=== PATIENT | male | born 1985 | race Caucasian/White ===

== ENCOUNTER 2022-04-10 12:10 | Observation (INO) ==
[2022-04-10] MEDS ORDERED: Lactated Ringers 1000 ml BAG 1,000 ML IV ONE (13:09)
[2022-04-10] MEDS ORDERED: LORazepam 2 mg VIAL 1 ml IV PUSH ONE (13:10)
[2022-04-10] MEDS ORDERED: Lorazepam PYXIS KEY PRN (13:10)
[2022-04-10 13:34] LABS: ABS Eosinophils 0.1 10^3/ul (0-0.6); ABS Lymphocytes 2.6 10^3/ul (1.0-4.8); ABS Monocytes 0.6 10^3/ul (0-0.8); ABS Neutrophils 5.4 10^3/ul (1.5-7.7); Eosinophil % 1.5 %; Hematocrit 43 % (42-52); Hemoglobin 14.9 g/dL (14.0-18.0); Mean Corpuscular HGB Conc 34 g/dL (31-36); Mean Corpuscular Hemoglobin 34 pg (27-31); Mean Corpuscular Volume 98 fL (80-94); Mean Platelet Volume 7.9 fL (7.4-10.4); Platelet Count 158 10^3/uL (150-450); Red Blood Count 4.44 10^6 /uL (4.18-5.48); Red Cell Distribution Width 14 % (10-15); White Blood Count 8.8 10^3/uL (3.5-10.8)
[2022-04-10 13:41] LABS: Urine Appearance Clear; Urine Bilirubin Negative (Negative); Urine Blood Negative (Negative); Urine Color Straw; Urine Glucose Negative (Negative); Urine Ketones Negative (Negative); Urine Nitrite Negative (Negative); Urine Protein Negative (Negative); Urine Specific Gravity 1.003 (1.002-1.030); Urine Urobilinogen Negative (Negative)
[2022-04-10 13:55] LABS: Urine Benzodiazepine Screen None Detected (None Detect); Urine Cannabinoids Screen None Detected (None Detect); Urine Opiates Screen None Detected (None Detect)
[2022-04-10 14:25] LABS: ALT 35 U/L (7-52); AST 32 U/L (13-39); Acetaminophen < 15 mcg/mL; Albumin 4.4 g/dL (3.2-5.2); Albumin/Globulin Ratio 1.7 (1-3); Alcohol, S 360 mg/dL (<13); Alkaline Phosphatase 66 U/L (35-149); Anion Gap 12 mmol/L (2-11); Blood Urea Nitrogen 5 mg/dL (6-24); CO2 Carbon Dioxide 25 mmol/L (22-32); Calcium 8.7 mg/dL (8.6-10.3); Chloride 105 mmol/L (101-111); Globulin 2.6 g/dL (2-4); Glucose 78 mg/dL (70-100); Salicylate < 2.50 mg/dL (<30); Sodium 142 mmol/L (135-145); eGFR CKD-EPI 128.6 (>60)
[2022-04-10 14:39] LABS: TSH Ultra Thyroid Stim Horm 0.09 mcIU/mL (0.34-5.60)
[2022-04-10] MEDS: Nicotine GUM 4MG FRUIT FLAVOR PO PRN ×3 (14:50→21:26)
[2022-04-10] MEDS ORDERED: Lactated Ringers 1000 ml BAG 1,000 ML IV SCH (15:00)
[2022-04-10 19:01] LABS: Free T4 0.84 ng/dL (0.61-1.12)
[2022-04-11] MEDS ORDERED: Thiamine 100 MG/ML 2 ml VIAL (200 mg) IM ONE (03:01)
[2022-04-11] MEDS ORDERED: Albuterol HFA INHALER 8 gm MDI INH PRN (03:04)
[2022-04-11] MEDS ORDERED: SPIRIVA Respimat (tiotropium) 2.5 mcg/inh Inhaler INH PRN (03:04)
[2022-04-11] MEDS ORDERED: LORazepam 2 mg VIAL 1 ml IV PUSH SCH (04:00)
[2022-04-11] MEDS: Multivitamins/Minerals TAB PO SCH (04:37)
[2022-04-11 04:46] LABS: ABS Eosinophils 0.2 10^3/ul (0-0.6); ABS Lymphocytes 2.1 10^3/ul (1.0-4.8); ABS Monocytes 0.6 10^3/ul (0-0.8); Eosinophil % 2.6 %; Hematocrit 38 % (42-52); Hemoglobin 12.6 g/dL (14.0-18.0); Lymphocyte % 35.2 %; Mean Corpuscular HGB Conc 33 g/dL (31-36); Mean Corpuscular Hemoglobin 33 pg (27-31); Mean Corpuscular Volume 99 fL (80-94); Nucleated Red Blood Cells % 0.1; Platelet Count 119 10^3/uL (150-450); Red Blood Count 3.83 10^6 /uL (4.18-5.48); Red Cell Distribution Width 14 % (10-15); White Blood Count 5.9 10^3/uL (3.5-10.8)
[2022-04-11 05:12] LABS: Albumin 3.3 g/dL (3.2-5.2); Calcium 7.7 mg/dL (8.6-10.3); Magnesium 1.6 mg/dL (1.9-2.7); Potassium 3.8 mmol/L (3.5-5.0); Total Bilirubin 0.4 mg/dL (0.2-1.0)
[2022-04-11 05:18] LABS: Albumin/Globulin Ratio 1.7 (1-3); Globulin 1.9 g/dL (2-4); Total Protein 5.2 g/dL (6.4-8.9); eGFR CKD-EPI 129.9 (>60)
[2022-04-11] MEDS ORDERED: Magnesium Sulfate IV 3 GM in NS 0.9% 100 ml BAG 100 ML IVPB ONE (06:46)
[2022-04-11] MEDS ORDERED: Potassium Chlor 20 meq TAB.ER PO ONE (06:46)
[2022-04-11] MEDS: LORazepam PO (enter doses in WAM protocol) PO SCH ×2 (16:40→20:20)
[2022-04-11 19:29] LABS: Calcium 9.5 mg/dL (8.6-10.3); Potassium 4.1 mmol/L (3.5-5.0)
[2022-04-11 19:35] LABS: eGFR CKD-EPI 124.5 (>60)
[2022-04-11] MEDS: Nicotine GUM 4MG FRUIT FLAVOR PO PRN ×2 (20:22→22:25)
[2022-04-12 06:31] LABS: Hematocrit 41 % (42-52); Hemoglobin 13.7 g/dL (14.0-18.0); Mean Corpuscular HGB Conc 34 g/dL (31-36); Mean Corpuscular Hemoglobin 34 pg (27-31); Mean Corpuscular Volume 100 fL (80-94); Platelet Count 123 10^3/uL (150-450); Red Blood Count 4.09 10^6 /uL (4.18-5.48); Red Cell Distribution Width 14 % (10-15); White Blood Count 4.1 10^3/uL (3.5-10.8)
[2022-04-12 06:55] LABS: Magnesium 2.1 mg/dL (1.9-2.7)
[2022-04-12 07:00] LABS: Phosphorus 4.7 mg/dL (2.5-5.0)
[2022-04-12 08:33] LABS: Calcium 9.5 mg/dL (8.6-10.3)
[2022-04-12 08:38] LABS: eGFR CKD-EPI 124.5 (>60)
[2022-04-12] MEDS ORDERED: Nicotine PATCH 21 MG/24 HR PATCH TRANSDERM SCH (09:00)
[2022-04-12] MEDS: Multivitamins/Minerals TAB PO SCH (09:42)
[2022-04-12 13:54] VITALS: BP 150/119
== END 2022-04-12 15:10 | disposition home or self-care (01) ==
LOC: ED 12:10 → EDHOLD 12:10 → SUATTDRO 04-11 02:58 → EDHOLD 04-11 15:07 → MED 04-11 17:14
PROVIDERS: ADMIT Internal Medicine; ATTEND Internal Medicine

== ENCOUNTER 2023-12-21 09:25 | Inpatient (IN) ==
[2023-12-21 16:11] LABS: ABS Basophils 0.1 10^3/uL (0.0-0.1); ABS Eosinophils 0.1 10^3/uL (0.0-0.5); ABS Lymphocytes 1.9 10^3/uL (1.0-4.8); ABS Monocytes 1.4 10^3/uL (0.0-1.1); ABS Neutrophils 11.4 10^3/uL (1.5-7.6); Eosinophil % 0.8 %; Hematocrit 42.8 % (38-53); Hemoglobin 14.8 g/dL (13.2-16.3); Lymphocyte % 12.8 %; Mean Corpuscular Hemoglobin 33.4 pg (27-33); Mean Corpuscular Hgb Conc 34.7 g/dL (31-36); Mean Corpuscular Volume 96.3 fL (80-97); Mean Platelet Volume 8.3 fL (7.5-11.2); Platelet Count 235 10^3/uL (150-450); Red Blood Count 4.44 10^6/uL (4.06-5.63); Red Cell Distribution Width 13.3 % (12-17); White Blood Count 14.9 10^3/uL (3.6-10.2)
[2023-12-21] MEDS: Morphine 4 MG/ML VIAL (1 ml) IV ONE (16:50)
[2023-12-21] MEDS: cefTRIAXone 1 gm/50 mL D5W 1 GM/50 ML BAG IV ONE (16:50)
[2023-12-21 16:53] LABS: Urine Appearance Clear; Urine Bilirubin Negative (Negative); Urine Blood Negative (Negative); Urine Color Yellow; Urine Glucose 2+ (>=150 mg/dL) (Negative); Urine Ketones Trace (Negative); Urine Nitrite Negative (Negative); Urine Protein Trace (Negative); Urine Specific Gravity 1.023 (1.002-1.030); Urine Urobilinogen Negative (Negative)
[2023-12-21 17:04] LABS: Albumin 4.6 g/dL (3.2-5.2); Albumin/Globulin Ratio 1.6 (1-3); C Reactive Protein 46.82 mg/L (<8.01); Calcium 9.6 mg/dL (8.6-10.3); Creatinine, Serum 0.73 mg/dL (0.67-1.17); Globulin 2.8 g/dL (2-4); Potassium 3.6 mmol/L (3.5-5.0); Total Bilirubin 0.6 mg/dL (0.2-1.0); Total Protein 7.4 g/dL (6.4-8.9); eGFR CKD-EPI 120.9 (>60)
[2023-12-21] MEDS: Iohexol 300 (CONTRAST) 10 ML SDV IV ONE (17:28)
[2023-12-21] MEDS: Vancomycin 1,250 MG in NS 0.9% 250 ml 250 ML IVPB ONE (17:39)
[2023-12-21] MEDS ORDERED: Vancomycin per Pharmacy 1 EA NOTE FOLLOW UP PRN (21:19)
[2023-12-21] MEDS: Lactated Ringers 1000 ml BAG 1,000 ML IV SCH (22:43)
[2023-12-22] MEDS: Vancomycin 1,250 MG in NS 0.9% 250 ml 250 ML IVPB SCH (00:18)
[2023-12-22] MEDS: Morphine 2 MG/ML SYRINGE IV PRN (02:11)
[2023-12-22 06:22] LABS: Calcium 8.7 mg/dL (8.6-10.3); Creatinine, Serum 0.72 mg/dL (0.67-1.17); eGFR CKD-EPI 121.4 (>60)
[2023-12-22 06:31] LABS: ABS Basophils 0.1 10^3/uL (0.0-0.1); ABS Eosinophils 0.3 10^3/uL (0.0-0.5); ABS Lymphocytes 1.9 10^3/uL (1.0-4.8); ABS Monocytes 1.3 10^3/uL (0.0-1.1); ABS Neutrophils 9.2 10^3/uL (1.5-7.6); Eosinophil % 2.3 %; Hematocrit 38.3 % (38-53); Hemoglobin 13.4 g/dL (13.2-16.3); Lymphocyte % 14.5 %; Mean Corpuscular Hemoglobin 33.5 pg (27-33); Mean Corpuscular Hgb Conc 34.9 g/dL (31-36); Mean Corpuscular Volume 95.8 fL (80-97); Mean Platelet Volume 8.1 fL (7.5-11.2); Platelet Count 212 10^3/uL (150-450); Red Blood Count 3.99 10^6/uL (4.06-5.63); Red Cell Distribution Width 13.1 % (12-17); White Blood Count 12.7 10^3/uL (3.6-10.2)
[2023-12-22] MEDS: HYDROmorphone 1 MG/1 ML SYRINGE IV SLOW PU PRN (06:44)
[2023-12-22] MEDS ORDERED: Midazolam 5 mg/5 ml VIAL 1 mg/ml 5 ml VIAL (5 mg) ONE (08:03)
[2023-12-22] MEDS ORDERED: fentaNYL 100 mcg/2 ml 50 MCG/ML VIAL ONE (08:03)
[2023-12-22] MEDS ORDERED: Propofol 10 MG/ML 20 ML BTL ONE ×2 (08:04→09:25)
[2023-12-22] MEDS ORDERED: Lidocaine 2% PF 5 ML VIAL ONE (08:06)
[2023-12-22] MEDS ORDERED: Ondansetron 4 mg VIAL 2 MG/ML 2 ml VIAL IV PRN (08:14)
[2023-12-22] MEDS ORDERED: Naloxone 0.4 mg VIAL 0.4 mg/ml 1 ml VIAL IV PRN (08:14)
[2023-12-22] MEDS ORDERED: fentaNYL 100 mcg/2 ml 50 MCG/ML VIAL IV PRN (08:14)
[2023-12-22] MEDS ORDERED: Lidocaine 1% VIAL 10 MG/ML 30 ML VIAL ONE (08:29)
[2023-12-22] MEDS ORDERED: Bacitracin OINTMENT TUBE ONE (08:29)
[2023-12-22] MEDS ORDERED: Vancomycin 1,500 MG in NS 0.9% 250 ml 250 ML IVPB SCH (09:00)
[2023-12-22] MEDS: cefTRIAXone 1 gm/50 mL D5W 1 GM/50 ML BAG IV SCH (15:24)
[2023-12-22] MEDS: Nicotine GUM 2MG FRUIT FLAVOR PO PRN (17:10)
[2023-12-23] MEDS: HYDROmorphone 1 MG/1 ML SYRINGE IV SLOW PU PRN (01:44)
[2023-12-23 07:50] LABS: ABS Eosinophils 0.4 10^3/uL (0.0-0.5); ABS Lymphocytes 1.6 10^3/uL (1.0-4.8); ABS Monocytes 0.9 10^3/uL (0.0-1.1); ABS Neutrophils 5.6 10^3/uL (1.5-7.6); ABS Nucleated RBC 0.01 10^3/ul; Hematocrit 37.2 % (38-53); Hemoglobin 12.8 g/dL (13.2-16.3); Lymphocyte % 18.7 %; Mean Corpuscular Hgb Conc 34.3 g/dL (31-36); Mean Corpuscular Volume 96.2 fL (80-97); Mean Platelet Volume 7.9 fL (7.5-11.2); Nucleated Red Blood Cells % 0.1 %/100WBC (0.0-0.8); Platelet Count 225 10^3/uL (150-450); Red Blood Count 3.87 10^6/uL (4.06-5.63); Red Cell Distribution Width 13.4 % (12-17); White Blood Count 8.6 10^3/uL (3.6-10.2)
[2023-12-23 08:34] LABS: Calcium 8.6 mg/dL (8.6-10.3); Creatinine, Serum 0.69 mg/dL (0.67-1.17); Magnesium 1.8 mg/dL (1.9-2.7); Potassium 3.8 mmol/L (3.5-5.0)
[2023-12-23] MEDS: Vancomycin Trough Check NOTE FOLLOW UP ONE (08:52)
[2023-12-23] MEDS: Magnesium Sulfate IV 1GM/100ML 1 GM/100 ML BAG IV ONE (10:57)
[2023-12-23] MEDS: diazePAM INJ CARPUJECT 5 MG/ML SYRINGE IV ONE (15:03)
[2023-12-23] MEDS: diazePAM INJ CARPUJECT 5 MG/ML SYRINGE ONE ×2 (15:04)
[2023-12-24] MEDS ORDERED: CMCS: Ketorolac 10 mg TAB (NF) PO PRN (10:03)
[2023-12-24] MEDS: Lidocaine 4% GEL 10 GM TUBE TOPICAL ONE (11:36)
[2023-12-24 12:37] LABS: Chlamydia trachomatis NAA Negative (Negative); Neisseria gonorrhoeae (GC) NAA Negative (Negative)
[2023-12-24 13:36] VITALS: BP 161/98
[2023-12-24 15:26] LABS: HIV 4th Generation Nonreactive (Nonreactive)
[2023-12-24] MEDS: Lidocaine PATCH 5% PATCH TRANSDERM SCH (15:42)
[2023-12-25] MEDS ORDERED: Vancomycin Trough Check NOTE FOLLOW UP ONE (07:30)
== END 2023-12-24 17:55 | disposition home or self-care (01) | DRG 718 ==
LOC: EDHOLD 09:25 → ED 09:25 → SUATTDRO 20:09 → SSU 21:15
PROVIDERS: ADMIT Internal Medicine; ATTEND Student in an Organized Health Care Education/Training Program